=== PATIENT | female | born 1960 | race Caucasian/White ===

== ENCOUNTER 2024-02-28 22:13 | Observation (INO) | payer OTHER, SELFPAY ==
[2024-02-28 18:21] VITALS: BP 148/99
[2024-02-28 18:47] LABS: % Basophils 0.5 % (0-2); % Eosinophils 1.2 % (0-6); % Immature Granulocytes 0.2 % (0-0.5); % Lymphocytes 32.2 % (20.5-51.1); % Monocytes 7.6 % (1.7-9.3); % Neutrophils 58.3 % (42.2-75.2); Absolute Basophils 0.1 10^3/uL (0-0.2); Absolute Eosinophils 0.1 10^3/uL (0-0.7); Absolute Lymphocytes 3.2 10^3/uL (1.2-3.4); Absolute Monocytes 0.8 10^3/uL (0.1-0.6); Absolute Neutrophils 5.8 10^3/uL (1.4-6.5); Hematocrit 36.9 % (37.0-47.0); Hemoglobin 12.9 g/dL (12.0-16.0); Mean Corpuscular Hgb 31.9 pg (27.0-31.0); Mean Corpuscular Volume 91.1 fL (81.0-99.0); Mean Platelet Volume 9.8 fL (7.4-10.4); Nucleated Red Blood Cells % 0 %; Platelet Count 205 10^3/uL (130-400); Red Blood Cell Count 4.05 10^6/uL (4.20-5.40); Red Cell Dist. Width 12.3 % (11.5-14.5); White Blood Cell Count 9.9 10^3/uL (4.8-10.8)
[2024-02-28 19:00] LABS: ALT (SGPT) 26 U/L (0-35); AST (SGOT) 26 U/L (14-36); Albumin 4.5 g/dl (3.5-5.0); Alkaline Phosphatase 80 U/L (38-126); Blood Urea Nitrogen 16 mg/dl (7-17); Carbon Dioxide 31 mmol/L (22-30); Chloride 103 mmol/L (98-107); Glucose 115 mg/dl (70-99); Potassium 3.4 mmol/L (3.5-5.1); Sodium 143 mmol/L (135-145); Total Bilirubin 0.9 mg/dl (0.2-1.3); Total Protein 6.9 g/dl (6.3-8.2); eGFR > 60.00
[2024-02-28 19:38] VITALS: BP 144/94
[2024-02-28 19:45] VITALS: BMI 36.6
--- NOTE | 2024-02-28 19:57 | ED.CVA ---
History of Present Illness
General
Chief Complaint: CVA/TIA Symptoms
Source: patient and family
Exam Limitations: none
Time Seen by Provider: 02/28/24 19:34
Nursing documentation reviewed up to this point in time: agreed with
Onset of Stroke Symptoms
Onset of symptoms known: Yes
Date of onset of symptoms: 02/28/24
History of Present Illness
History of Present Illness:
63-year-old female with a past medical history of hypertension, hyperlipidemia, obesity, MIA on CPAP, prior stroke who presents to the emergency department with her family for evaluation of extremity tingling/numbness, generalized weakness and left
facial droop/dysarthria. Patient reports that she woke up this morning with numbness and tingling in the right arm. Since then she says numbness and tingling has progressed to all extremities but it is worse on the right. She also reports
weakness on the right side. Today in the afternoon she started to develop left facial droop that family noticed as well as some dysarthria. The symptoms have improved but not resolved. Brought to the emergency room for evaluation. Denies any
change in her vision. She does have history of prior stroke and she says that she received tPA and was transferred to [place] about 12 years ago for this stroke and has no residual deficits. Presenting symptoms at that time were mainly
dysarthria according to the patient and her . She continues to take aspirin but denies taking any other blood thinners. She denies any known cardiac history including specifically denying history of A-fib.
Past History
Past History
ED Past Medical History: HTN, Hypercholesterolemia and Psychiatric (a/d)
ED Past Surgical History: , Orthopedic and Tonsilectomy
Social History
Tobacco: Non-smoker
Alcohol: Occasional
Personal:
Living: with family
Family History
Family History: Negative Diabetes, Hypertension, Early CAD, Asthma or Cancer
Review of Systems
Review of Systems
All Other Systems: ROS reviewed and negative except as documented in HPI and ROS
Constitutional: Denies fever
Respiratory: Denies trouble breathing
Cardiac: Denies chest pain or palpitations
ABD/GI: Denies abdominal pain, nausea or vomiting
: Denies flank pain
Musculoskeletal: Denies neck pain or back pain
Neurological: Reports dizzy, weakness and numbness; Denies headache
Phy Exam
Physical Exam
Physical Exam:
General: Awake, alert, oriented x3; no acute distress
Head: Normocephalic, atraumatic
Eyes: Conjunctiva normal, EOMI, pupils equal round and reactive to light
Throat: Airway intact, handling secretions
Neck: Trachea midline, supple without meningismus
Lungs: Clear to auscultation bilaterally, no wheezing, rales, rhonchi
Heart: Regular rate and rhythm, no murmurs, gallops, or rubs
Neuro: Very slight droop left corner of the mouth, cranial nerves otherwise intact 2 through 12, no appreciable dysarthria or aphasia, no limb ataxia, motor and sensory exam significant for pronator drift in the right upper and lower extremity and
subjective sensory deficit on the right side
Skin: no rash
Extremities: No edema in extremities, equal pulses in all extremities
Scores
NIH Stroke Score
Level of Consciousness: 0 - Alert
LOC Questions: 0-Answers both correctly
LOC Commands: 0-Performs both correctly
Best Horizontal Gaze: 0-Normal
Visual [place]il[place]: 0=Normal, no visual loss
Facial Palsy: 1=Minor paralysis
Motor - Right Arm: 1=Drift < 10 seconds
Motor - Left Arm: 0=No drift 10 seconds
Motor - Right Le-Drift < 5 seconds
Motor - Left Le-No drift 5 seconds
Limb Ataxia: 0-Absent
Sensation: 1-Mild loss
Best Language: 0-No aphasia
Dysarthria: 0-Normal
Extinction and Inattention: 0-No abnormality
Total Score:: 4
Thrombolytic Contraindication
Inclusion and Exclusion criteria reviewed: Yes
Reasons for NON-Tx with Thrombolytics ABSOLUTE Exclusions: Greater than 4.5 hrs from onset of sxs
Heart Failure Risk
Heart Failure Risk Score: Not Applicable
Heart Score for Chest Pain Patients
STEMI patient?: Not applicable
Withdrawal Assessment of Alcohol
Withdrawal Assessment Completed?: Not applicable
Course
Orders/Labs/Results
Orders:
Orders
02/28/24 18:26
Electrocardiogram (*1) Urgent
Reason for Study: TIA/Stroke
CT Head W/o Iv Contrast Urgent
Comment: symptoms started 24 hours ago
Reason For Exam: bilateral arm/face/lip numbness, loss of balance
EKG- Treatment ONCE
02/28/24 18:38
Complete Blood Count/With Diff Urgent
Comprehensive Metabolic Panel Urgent
02/28/24 19:50
Aspirin 325 mg PO NOW STA
Clopidogrel Bisulfate [Plavix] 300 mg PO NOW STA
02/28/24 19:52
CT HEAD/NECK ANG STROKE ALERT Urgent
Comment:
Reason For Exam: right weakness, left facial droop, dysarthria
Abnormal Lab Results
02/28/24
18:38
RBC 4.05 L 10^6/uL
(4.20-5.40)
Hct 36.9 L %
(37.0-47.0)
MCH 31.9 H pg
(27.0-31.0)
Absolute Monos (auto) 0.8 H 10^3/uL
(0.1-0.6)
Potassium 3.4 L mmol/L
(3.5-5.1)
Carbon Dioxide 31 H mmol/L
(22-30)
Glucose 115 H mg/dl
(70-99)
02/28/24 18:38
02/28/24 18:38
Vital Signs
Initial and Last Documented VS:
Initial Vital Signs
Temp Pulse Resp BP Pulse Ox
36.7 C 81 18 148/99 99
02/28/24 18:21 02/28/24 18:21 02/28/24 18:21 02/28/24 18:21 02/28/24 18:21
Last Documented Vital Signs
Temp Pulse Resp BP Pulse Ox
36.7 C 81 18 148/99 96
02/28/24 18:21 02/28/24 18:21 02/28/24 18:21 02/28/24 18:21 02/28/24 19:45
MDM/Problems Addressed
Differential Diagnosis Includes:
Stroke, seizure, brain bleed, brain mass
MDM/Problems Addressed:
63-year-old female presents to the emergency room for evaluation of extremity paresthesias worse on the right, right-sided weakness, left facial droop and dysarthria�symptoms started this morning and progressed throughout the day; facial droop and
dysarthria have improved but not resolved, extremity symptoms unchanged. Hypertensive otherwise normal vitals. Physical exam as above. No stroke alert as patient is outside TNK window but she was taken for expeditious CT head which was negative
for any acute pathology. Labs sent off including a CBC and a CMP which showed no clinically significant abnormalities. Concern for minor ischemic stroke. Discussed case with neurology�again, outside TNK window but recommended sending for CTA head
and neck. Treat with aspirin and Plavix. If CTA head and neck negative for significant large vessel occlusion or dissection recommended admission for continued workup of acute stroke.
Chronic conditions affecting care:
Hypertension, hyperlipidemia, obesity
Acute Exacerbation and/or Progression of Chronic Illness:
Acutely hypertensive�permissive in the setting of stroke
Acute Exacerbation and/or Progression of Chronic Illness: HTN
*Radiology
Radiology exam reviewed: radiology read reviewed
*Pulse Oximetry
Patient hypoxic: no
*EKG
Interpreted by ED Provider?: Yes
Heart Rate: 78
Rate: normal
Rhythm: sinus
[place]: normal axis
Interval: long QT
QRS Pattern: normal QRS
Ischemia: non-specific ST changes
*Critical Care Note
Total Time (30-74mins, 75-104mins- exclusive of procedures): Not Applicable
Data Reviewed
Review of Other/Old Records Reveals: Labs and Records
Source: patient, records and family
Patient Management
Discussion with other providers: Hospitalist (Discussed with hospitalist) and Distributor Cleaner (Discussed with neurology)
Escalation/DeEscalation of care consider admission/obs:
Admission indicated
ED Attending Note
-
Portions of this chart may have been created with voice recognition software.� Occasional wrong word or��sound alike� substitutions may have occurred due to the inherent limitations of voice recognition software.
Discharge Plan
Departure
Prescriptions:
No Action
buspirone 5 MG tablet
7.5 mg PO BID
venlafaxine [Effexor XR] 150 MG capsule,extended release 24hr
150 mg PO HS
lisinopril-hydrochlorothiazide 1 EACH tablet
1 tab PO HS
albuterol sulfate 1 PUFF HFA aerosol inhaler
2 puff inhalation R QID
eszopiclone [Lunesta] 3 MG tablet
3 mg PO HSPRN PRN (Reason: sleep)
Patient Comments:
12/18/20-patient shredder picker on 11/08/20 #30
zinc [Zinc Chelate] 100 MG tablet
100 mg PO DAILY
magnesium oxide 500 MG tablet
500 mg PO DAILY
cyclosporine [Restasis] 10 DROPS dropperette
1 drp BOTH EYES BID
cholecalciferol (vitamin D3) 2,000 UNITS tablet
2,000 units PO DAILY
simvastatin 20 MG tablet
40 mg PO QPM
potassium chloride 20 MEQ tablet extended release
20 meq PO BID
acetaminophen 325 MG tablet
650 mg PO Q4HPRN PRN (Reason: fever >/= 100.4F, GUAMAN,mild pain) 0RF
valacyclovir 500 MG tablet
1,000 mg PO BID Qty: 6 0RF
dexamethasone 2 MG tablet
2 mg PO DAILY Qty: 11 0RF
codeine-guaifenesin [Guaiatussin AC] 10 ML liquid
10 ml PO Q4HPRN PRN (Reason: cough) 0RF
gabapentin 100 MG capsule
200 mg PO HS Qty: 30 0RF
oseltamivir [Tamiflu] 75 mg capsule
75 mg PO BID 5 Days Qty: 10 0RF
Interventions
Interventions:
*Risk Screen - Suicide Last Done: 02/28/24 18:21
*General Assessment Last Done: 02/28/24 18:21
*Neglect/Abuse Screening Last Done: 02/28/24 18:21
*ED COVID-19 Vaccine History Last Done: 02/28/24 19:45
ED- Pulmonary Assessment Last Done: 02/28/24 19:45
ED- Neurological Assessment Last Done: 02/28/24 19:45
ED- Cardiac Assessment Last Done: 02/28/24 19:45
ED Swallowing Screen Last Done: 02/28/24 19:58
Discharge Date and Time
Print Language: UPPER SORBIAN
[2024-02-28 20:00] VITALS: BP 135/86
[2024-02-28] MEDS: PLAVIX 300 MG PO (20:00)
[2024-02-28] MEDS: ASPIRIN 325 MG PO (20:00)
[2024-02-28 21:00] VITALS: BP 137/85
--- NOTE | 2024-02-28 21:10 | HPS.HSE ---
Addendum entered and electronically signed by Rivas Fowler DO 02/28/24 23:06:
Patient seen and examined independently. Patient is a 63y F with PMH significant for hypertension, anxiety / PTSD and prior CVA who presents to ED complaining of numbness / tingling in the RUE. Patient states that symptoms started this AM and
have been predominately on the R side. She did have some similar paresthesias in the L hand later this afternoon. Patient and family also report intermittent R facial droop and some equally intermittent word-finding difficulties.
Patient notes no focal weakness, gait dysfunction, etc.
Patient does complain of headache - but reports that she has had daily headaches for the past 2-3 years.
Ass:
R > L sided Paresthesias
Expressive Aphasia / R Facial Droop - Intermittent
ASCVD / Prior CVA
Prolonged QTc
Mild Hypokalemia
Chronic Headaches
Benign Hypertension
Anxiety / Depression / PTSD
MIA
Insomnia
Plan:
Observe overnight for further evaluation and treatment.
Monitor for any new / worsening neurologic symptoms.
MRI in the AM.
Neurology evaluation.
DAPT for now.
Continue BP control, statin, etc.
Addendum entered and electronically signed by NELLI Villavicencio 02/28/24 22:32:
CVA rule out
Aspirin 81 mg daily, Plavix 300 mg given in ER then Plavix 75 mg daily per neurology
Original Note:
Family Physician
-
Family Physician: INTERVIEWE UNKNOWN - PT NOT
Chief Complaint
-
Bilateral arm weakness, tingling numbness, right facial droop, expressive aphasia, ataxia
History of Present Illness
63-year-old female complaining of generalized weakness, right facial droop with dysarthria and right arm tingling and numbness. She reports the tingling numbness in the right arm started this morning then has progressed to her left arm. She states
she drove approximately 2 miles to her daughter's house and was telling her about the symptoms. Her daughter states she thought she had a weakness in the left side of her face but now states it was her right side . Her daughter also states she had
some expressive aphasia and when walking she was leaning more to the left side due to increased weakness and numbness on the right side. The patient currently complains of bilateral arm numbness and tingling along with tightness in her fingers and
joints. She has prominent Aydee's nodes on her left index and pinky finger along with right pinky finger. She does not appear to have any swelling to her joints, hands, elbows, shoulders, ankles and feet. She denies a history of daily
headaches for which she only saw a physician 1 time who gave her prescription for Nurtec which helped but she had run out. She states she takes daily Excedrin migraine which will help take them away. She reports to me she has not seen a physician
for them as she is overwhelmed with just being sick and feels it is just not worth it to keep going to doctors. She drinks 16 ounces of Chardonnay twice a week. She denies current fever, chills, chest pain, palpitations, shortness breath, cough,
abdominal pain, nausea, vomiting, diarrhea, urinary symptoms, recent illness. She has past medical history of prior stroke in which she received tPA and was transferred to [place] approximately 12 years ago with no residual deficits. She is
currently on aspirin. She has past medical history of hypertension, hyperlipidemia, anxiety/depression, influenza A 03/03/2023, COVID 19 infection 12/17/2020 treated with monoclonal antibody infusion and Decadron . Was unvaccinated at that time,
pulmonary fibrosis from COVID-19 infection, right eye retinal tear June 2020, right eye glaucoma.
Medical History
Past Medical History
Past Medical History: Reports Other
Additional Past Medical History:
prior stroke in which she received tPA and was transferred to [place] approximately 12 years ago with no residual deficits
hypertension
hyperlipidemia
anxiety/depression
PTSD
influenza A 03/03/2023
COVID 19 infection 12/17/2020 treated with monoclonal antibody infusion and Decadron . Was unvaccinated at that time
Reported pulmonary fibrosis from COVID
Sleep apnea, CPAP
Right eye glaucoma
Ovarian cysts
Past Surgical History: Reports Other
Additional Past Surgical History:
2003 Boxer fracture right hand
Bilateral cataract extraction 1998
section
Tonsillectomy
Retinal detachment repair June 2020
Social History
Tobacco: Non-smoker
Alcohol: Occasional (16 ounces Chardonnay wine twice a week)
Drug: None
Personal:
Living: With Family
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
Family History
Family History: Not pertinent
Allergies / Home Medications
Allergies reflects when Allergies were last updated in [facility].
Home Medications with original date entered in [facility]
Allergy/Medication List:
Allergies
Allergy/AdvReac Type Severity Reaction Status Date / Time
Calcium Channel Blocking Allergy Unknown Verified 12/18/20 12:56
[facility]
Home Medications
buspirone 5 mg tablet 10 mg PO BID Mental Health/Anxiety 12/17/20
cholecalciferol (vitamin D3) 50 mcg (2,000 unit) tablet 2,000 units PO DAILY Supplement 12/17/20
eszopiclone 3 mg tablet (Lunesta) 3 mg PO HSPRN PRN sleep 12/17/20
lisinopril 20 mg-hydrochlorothiazide 25 mg tablet 1 tab PO HS Blood pressure 12/17/20
magnesium oxide 500 mg PO DAILY Electrolyte Repletion 12/17/20
venlafaxine 150 mg capsule,extended release 24 hr (Effexor XR) 150 mg PO HS Mental Health/Anxiety 12/17/20
simvastatin 20 mg tablet 40 mg PO QPM High cholesterol 12/18/20
Aspir-81 81 mg PO HS 02/28/24
Excedrin Migraine 2 tab PO DAILY PRN headache 02/28/24
Vitamin B-6 100 mg PO DAILY 02/28/24
Vitamin C 1,000 mg PO DAILY 02/28/24
Vitamin D3 1,000 l PO DAILY 02/28/24
dorzolamide-timolol 1 drp ophthalmic (eye) BID 02/28/24
eszopiclone 3 mg tablet (Lunesta) 3 mg PO HS 02/28/24
iron 65 mg PO DAILY 02/28/24
lisinopril 10 mg PO DAILY 02/28/24
metoprolol succinate 25 mg PO HS 02/28/24
selenium 200 mcg PO DAILY 02/28/24
zinc 50 mg PO DAILY 02/28/24
Review of Systems
-
History Source: Patient and Family (Daughter and at bedside)
A 12 point ROS was completed and negative except as noted: Yes
Constitutional: Denies Fever, Fatigue or Chills
EENT: Reports Other (Negative neck pain); Denies Sore Throat, Mouth Swelling or Runny Nose
Respiratory: Denies Cough or Trouble Breathing
Cardiac: Denies Chest Pain, Diaphoresis, Palpitations or Syncope
Abdomen/GI: Denies Abdominal Pain, Nausea, Vomiting, Diarrhea, Constipated, Bloody Stools or Black Stools
: Denies Dysuria, Frequency, Flank Pain, Incontinence, Difficulty Voiding, Urgency or Dark Urine
Musculoskeletal: Reports Joint Pain (Bilateral hands/fingers,Osteoarthritis with prominent Aydee's nodes left index, pinky finger, right pinky finger); Denies Joint Swelling or Edema
Skin: Denies Itching or Rash
Neurological: Reports Headache (Chronic daily), Weakness (Reported right side of body), Numbness (Reported right side of body) and Other (Reported right facial droop); Denies Dizzy
Endocrine: Reports No Symptoms
Hematologic/Lymphatic: Reports No Symptoms
Psych: Reports Calm
Physical Exam
Vital Signs
Vital Signs
Temp Pulse Resp BP Pulse Ox
98.1 F 85 16 135/86 94
02/28/24 18:21 02/28/24 20:30 02/28/24 20:30 02/28/24 20:00 02/28/24 20:30
Physical Exam
General: Comfortable, Conversant and Obese; No Pain, Fever or Chills
HEENT: NormoCephalic, Anicteric, Moist mucous membranes, PERRLA (EOMs intact), [place] Conjunctivae, No Ptosis, Neck Nontender and Other (Speech clear, intermittent right facial droop, not present when patient is speaking only when at rest); No
Pharyngeal Erythema
Respiratory: Clear; No Wheezes, Rales or Rhonchi
Cardiac: S1/S2 and Regular Rhythm; No Murmur, Rub, Gallop or Peripheral Edema
Breast: Deferred by me
GI: Soft, Non Tender, Non Distended, Normal Bowel Sounds and No Hepatosplenomegaly
Rectal: Deferred by Provider
Genito-urinary: Deferred by me
Musculoskeletal: No Clubbing, No Cyanosis, No Edema and Other (Osteoarthritis with prominent Aydee's nodes left index, pinky finger, right pinky finger)
Skin: Warm and Dry; No Rash or Jaundice
Neuro: AO x 3, No Motor Deficits, Cranial Nerves Intact, No Sensory Deficits, Facial Droop (Intermittent right facial droop , not present when talking) and Other; No Slurred Speech, Tremors or Sedated
Psych: Calm
Laboratory Results
-
02/28/24 18:38
02/28/24 18:38
Laboratory Results
Total Bilirubin 0.9 mg/dl (0.2-1.3) 02/28/24 18:38
AST 26 U/L (14-36) 02/28/24 18:38
ALT 26 U/L (0-35) 02/28/24 18:38
Alkaline Phosphatase 80 U/L (38-126) 02/28/24 18:38
Data Reviewed
-
CT Scan: Report Reviewed by me
Lab Data: Labs Reviewed by me
Impression/Plan
-
Impression/plan:
Admit to telemetry
#Right sided weakness/arm drift, left facial droop
#Onset Right side weakness this a.m then later left facial droop. out of TNK window
#Hx CVA 12 years ago treated with tPA with no residual side effects
-Check lipid profile, HgbA1c
-Continue aspirin 81 mg daily, Zocor 40 mg every afternoon
-Consult neurology
-MRI brain
-Check B12 level
-PT/OT/case management consult
CTA head and neck:
1. Focal nodular plaque involving the proximal left cervical ICA with estimated luminal diameter reduction of less than 50%
2. no other significant plaque stenosis or occlusion or dissection of the carotid or vertebral arteries
3. no [place] of [place] region aneurysm or stenosis no cerebral artery significant plaque stenosis thrombus or occlusion
#Prolonged QTc 507 MS
-Hold prolonging QTc agents
-Follow on telemetry
EKG: NSR 83 bpm, QTc 507 MS otherwise normal
# Acute hypokalemia
K3.4
-Will give 40 KCl p.o., follow BMP
#Daily headaches
-Patient reports takes 2 Excedrin Migraine typically daily did have prior Nurtec that helps
-Had lengthy discussion for patient to follow-up with either PCP or neurologist to discuss prophylactic daily migraine medications
-Continue vitamin B6 100 mg daily, selenium 200 mg daily, mag oxide 500 mg daily
#HTN�benign
BP 135/86
-Continue lisinopril/HCTZ 20-25 mg p.m., lisinopril 10 mg a.m.
-Patient takes aspirin 81 mg daily
#HLD
-Check lipid profile, continue simvastatin 40 mg every afternoon
#Anxiety/depression
#PTSD
-Continue Effexor XR 150 mg at bedtime, BuSpar 10mg twice daily
#Osteoarthritis with prominent Aydee's nodes left index, pinky finger, right pinky finger
-Continue vitamin D3 1000 units daily, vitamin C 1000 mg daily
#COVID 19 infection 12/17/2020 treated with monoclonal antibody infusion and Decadron
#Pulmonary fibrosis from above COVID infection
# Sleep apnea
Uses fluctuating nasal cushion 5-20 does not have with her today
#Insomnia
-Continue Lunesta 3 mg at bedtime
Other PMH:
#Hx influenza A 03/03/2023
Right eye retinal tear June 2020
Right eye glaucoma-continue dorzolamide/timolol 1 drop right eye twice daily
DVT prophylaxis
SCDs
Full code
[2024-02-28 22:33] VITALS: BP 136/93
[2024-02-28 23:00] VITALS: BP 141/87
[2024-02-29] VITALS (8 sets, daily range): BP systolic 125–144; BP diastolic 83–93; PULSE 84–88; O2SAT 96; BMI 36.3
[2024-02-29] MEDS: KCL 40 MEQ PO (00:15)
[2024-02-29] MEDS: EFFEXOR XR 150 MG PO (00:15)
[2024-02-29] MEDS: TRUSOPT 2% OPHTHALMIC SOLUTION 1 DROP OPHTH ×2 (00:42→08:36)
[2024-02-29] MEDS: TIMOPTIC 0.5% OPHTHALMIC SOLUTION 1 DROP OPHTH ×2 (00:42→08:36)
--- NOTE | 2024-02-29 00:50 | PTCARENOTE ---
Pt arrived from ED via stretcher. OOb to bed x1 minimal assist, steady gait. Pt with delayed speech, states 'I do feel like I am talking slower and I have to think about my words.' Also c/o R hand numbness and tinging and R leg decreased sensation.
Denies sob, pain or dizziness. oriented to room. call patton within reach.
[2024-02-29 01:32] LABS: Vitamin B12 247 pg/ml (239-931)
[2024-02-29] MEDS: TYLENOL 650 MG PO (05:44)
[2024-02-29] MEDS: BUSPAR 10 MG PO (06:10)
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
[2024-02-29] MEDS: VITAMIN C 1000 MG PO (08:34)
[2024-02-29] MEDS: VITAMIN B-6 100 MG PO (08:34)
[2024-02-29] MEDS: PLAVIX 75 MG PO (08:34)
[2024-02-29] MEDS: VITAMIN D3 (cholecalciferol) 25 MCG PO (08:35)
[2024-02-29] MEDS: FEOSOL 325 MG PO (08:35)
[2024-02-29] MEDS: ZINC 50 MG PO (08:35)
[2024-02-29] MEDS: MAGNESIUM OXIDE 500 MG PO (08:35)
[2024-02-29] MEDS: ZESTRIL 10 MG PO (08:36)
[2024-02-29 08:39] LABS: % Basophils 0.7 % (0-2); % Eosinophils 1.6 % (0-6); % Immature Granulocytes 0.3 % (0-0.5); % Lymphocytes 38.9 % (20.5-51.1); % Monocytes 10.2 % (1.7-9.3); % Neutrophils 48.3 % (42.2-75.2); Absolute Basophils 0.1 10^3/uL (0-0.2); Absolute Eosinophils 0.1 10^3/uL (0-0.7); Absolute Lymphocytes 2.6 10^3/uL (1.2-3.4); Absolute Monocytes 0.7 10^3/uL (0.1-0.6); Absolute Neutrophils 3.3 10^3/uL (1.4-6.5); Hematocrit 37.6 % (37.0-47.0); Hemoglobin 12.6 g/dL (12.0-16.0); Mean Corp Hgb Conc. 33.5 g/dL (33.0-37.0); Mean Corpuscular Hgb 31.7 pg (27.0-31.0); Mean Corpuscular Volume 94.5 fL (81.0-99.0); Mean Platelet Volume 9.8 fL (7.4-10.4); Nucleated Red Blood Cells % 0 %; Platelet Count 195 10^3/uL (130-400); Red Blood Cell Count 3.98 10^6/uL (4.20-5.40); Red Cell Dist. Width 12.6 % (11.5-14.5); White Blood Cell Count 6.8 10^3/uL (4.8-10.8)
[2024-02-29 09:02] LABS: ALT (SGPT) 24 U/L (0-35); AST (SGOT) 26 U/L (14-36); Albumin 4.1 g/dl (3.5-5.0); Alkaline Phosphatase 68 U/L (38-126); Blood Urea Nitrogen 15 mg/dl (7-17); Calcium 8.7 mg/dl (8.4-10.2); Carbon Dioxide 24 mmol/L (22-30); Chloride 107 mmol/L (98-107); Estimated Creatinine Clearance 112 ml/min; Glucose 90 mg/dl (70-99); HDL Cholesterol 48 mg/dl; LDL Cholesterol, Calculated 69 mg/dl; Magnesium 2.2 mg/dl (1.6-2.3); Sodium 141 mmol/L (135-145); Total Bilirubin 1.4 mg/dl (0.2-1.3); Total Cholesterol 157 mg/dl (50-199); Total Protein 6.4 g/dl (6.3-8.2); Triglyceride 201 mg/dl (10-149); Very Low Density Lipoprotein 40 mg/dl (0-30); eGFR > 60.00
--- NOTE | 2024-02-29 12:20 | CM ---
Met with pt at bedside
Pt reports she lives with her , daughter, son-in-law and 3 grandchildren in a 2 story home; 1 step to enter, 13 steps to 2nd fl
Independent, employed FT, drives
DME - CPAP with [employer]
SNF - denies past hx
HH - [facility] in past
Has ride home at discharge
PCP - Soto Cleveland
Pharm - [facility]
Discussed OBS status - given letter
Plan - anticipate home no needs when medically stable
--- NOTE | 2024-02-29 12:36 | PTOTSP ---
pt currently requires supervision to no assistance to complete simple ADLs, functional transfers, ambulation. no symptoms noted while completing functional tasks; pt reports they have resolved. no acute OT needs identified, will sign off.
--- NOTE | 2024-02-29 14:07 | W.DCSUMMARY ---
Discharge Summary
Discharge Data
Date of Admission: 02/28/24
Date of Discharge: 02/29/24
-
Pending Results: No
Hospital Course
Discharging Physician : Dr. Reyna Cruz
Disposition : Home with outpatient physical therapy
Primary care physician : Dr. Soto Cleveland
Principal Discharge diagnosis : TIA
Hospital Course :
Ms. Anamaria Ramos is a 63 yo woman with hx essential HTN, anxiety/PTSD, prior CVA presents to the ER with numbness/tingling RUE and report of intermittent right facial droop with word-finding difficulties.
Head CT without acute abnormality. CTA with proximal left cervical ICA stenosis < 50%; no other significant stenosis. Patient was started on plavix with [employer] aspirin and admitted to medicine with Neurology consulting for further work-up of TIA
versus stroke.
Symptoms improved following morning with only minor RUE numbness/tingling. TTE with EF 55-60%; bubble study WNL. MRI did not show acute infarct. She is treated for TIA with 21 days asa/plavix then transition back to aspirin per Neurology
recommendations. She will be set up for 2 week Holter Monitor as outpatient.
EEG performed prior to discharge was normal.
Time spent on discharge was 31 minutes.
Important imaging findings :
Head CT 02/29/24
IMPRESSION:
No evidence of acute intracranial abnormality.
CTA
IMPRESSION:
Focal nodular calcified plaque involving the proximal left cervical ICA, with estimated luminal diameter reduction of less than 50%.
No other significant calcified plaque, stenosis, occlusion, or dissection of the cervical carotid or vertebral arteries.
No ione of Tong region aneurysm or stenosis.
No cerebral artery significant plaque, stenosis, thrombus, or occlusion.
Degree of stenosis based on NASCET criteria.
Brain MRI 02/29/24
IMPRESSION:
There are no focal or acute intracranial abnormalities.
Specifically, there is no evidence of acute infarct
There is mild cortical and cerebellar atrophy with mild nonspecific white matter changes as described above.
TTE
CONCLUSIONS
Normal left ventricular size and systolic function without regional wall motion
abnormality. LVEF 55-60%.
Mild left ventricular hypertrophy.
Mildly enlarged right ventricle with normal systolic function.
No significant valvular disease.
Bubble study with no evidence of shunt.
Jose Luis
Procedure findings :
Discharge Plan
-
Patient Disposition: Home (Routine Discharge)
Discharge Diagnosis/Procedures: transient ischemic attack
Diet: Low Cholesterol
Activity: As tolerated
Driving Restrictions: As prior to admission
Bathing Restrictions: None
Others Tests: playground monitor - you will receive a phone call to set up heart monitor to be placed tomorrow. This monitor is to confirm you do not have an arrhythmia that can lead to TIA or stroke (atrial fibrillation).
Other Services: PT
Referrals:
Diya Eubanks CRNP [Specified Professional Personl] - in six weeks
Soto Cleveland MD [Family Provider] - in less than 1 week
Elias Pugh MD [Active] - (Dr. Pugh's office will call you tomorrow to arrange for a 14-day heart monitor to be placed.)
Additional Discharge Medication Instructions: You have 19 more days of Plavix to take with Aspirin. After 19 days continue aspirin 81mg daily.
Take Protonix while on aspirin and Plavix.
Prescriptions:
New
clopidogrel 75 mg Tablet
75 mg PO DAILY Qty: 19 0RF
pantoprazole [Protonix] 40 mg tablet,delayed release (DR/EC)
40 mg PO DAILY Qty: 20 0RF
Continued
buspirone 5 MG tablet
10 mg PO BID
venlafaxine [Effexor XR] 150 MG capsule,extended release 24hr
150 mg PO HS
lisinopril-hydrochlorothiazide 1 EACH tablet
1 tab PO DAILY
Rx Instructions:
20/25mg
eszopiclone [Lunesta] 3 MG tablet
3 mg PO HSPRN PRN (Reason: sleep)
Patient Comments:
12/18/20-patient case picker on 11/08/20 #30
magnesium oxide 500 MG tablet
500 mg PO DAILY
cholecalciferol (vitamin D3) 2,000 UNITS tablet
2,000 units PO DAILY
simvastatin 20 MG tablet
40 mg PO QPM
Aspir-81
81 mg PO HS
eszopiclone [Lunesta] 3 mg Tablet
3 mg PO HS
Vitamin B-6
100 mg PO DAILY
Vitamin C
1,000 mg PO DAILY
Vitamin D3
1,000 l PO DAILY
dorzolamide-timolol
1 drp ophthalmic (eye) BID
Rx Instructions:
2%/0.5% right eye
iron
65 mg PO DAILY
lisinopril
20 mg PO DAILY
metoprolol succinate
25 mg PO HS
zinc
50 mg PO DAILY
rosuvastatin [Crestor] 20 mg Tablet
20 mg PO DAILY
Discontinued
Excedrin Migraine
2 tab PO DAILY PRN (Reason: headache)
Discharge Orders:
Discharge Patient (As Directed); Ordered 02/29/24
Ordered By: Reyna Cruz
Discharge Date and Time
Print Language: CHILEAN
--- NOTE | 2024-02-29 15:52 | W.DS.TRANS ---
DC Summary - Audiovisual Librarian
-
Discharge Instructions:
Discharge Diagnosis/Procedures transient ischemic attack
Diet Low Cholesterol
Activity As tolerated
Driving Restrictions As prior to admission
Bathing Restrictions None
Other Services PT
Instructions:
Stand-Alone Forms:
Changes to Home Medications: Yes
Discharge Medications:
DC Medications w/original date entered in [facility]
buspirone 5 mg tablet 10 mg PO BID Mental Health/Anxiety 12/17/20
cholecalciferol (vitamin D3) 50 mcg (2,000 unit) tablet 2,000 units PO DAILY Supplement 12/17/20
eszopiclone 3 mg tablet (Lunesta) 3 mg PO HSPRN PRN sleep 12/17/20
lisinopril 20 mg-hydrochlorothiazide 25 mg tablet 1 tab PO DAILY Blood pressure 12/17/20
magnesium oxide 500 mg PO DAILY Electrolyte Repletion 12/17/20
venlafaxine 150 mg capsule,extended release 24 hr (Effexor XR) 150 mg PO HS Mental Health/Anxiety 12/17/20
simvastatin 20 mg tablet 40 mg PO QPM High cholesterol 12/18/20
Aspir-81 81 mg PO HS 02/28/24
Vitamin B-6 100 mg PO DAILY 02/28/24
Vitamin C 1,000 mg PO DAILY 02/28/24
Vitamin D3 1,000 l PO DAILY 02/28/24
dorzolamide-timolol 1 drp ophthalmic (eye) BID 02/28/24
eszopiclone 3 mg tablet (Lunesta) 3 mg PO HS 02/28/24
iron 65 mg PO DAILY 02/28/24
lisinopril 20 mg PO DAILY 02/28/24
metoprolol succinate 25 mg PO HS 02/28/24
zinc 50 mg PO DAILY 02/28/24
clopidogrel 75 mg tablet 75 mg PO DAILY #19 tabs 02/29/24
pantoprazole 40 mg tablet,delayed release (Protonix) 40 mg PO DAILY #20 tabs 02/29/24
rosuvastatin 20 mg tablet (Crestor) 20 mg PO DAILY 02/29/24
Home Medication Changes
addition of Plavix and Protonix
Pending Results: No
[2024-02-29] MEDS: AFLURIA (36 mos+) 2024-2025 FORMULA 0.5 ML IM (17:33)
--- NOTE | 2024-02-29 18:24 | EEGC.RPT ---
Continuous EEG Report
Report
TECHNICAL REMARKS: This is a technically satisfactory eighteen channel record employing 21 disc electrodes applied according to a measured international 10-20 electrode placement system. There were no significant technical difficulties. The study
was done on a [employer] System.
CLINICAL HISTORY: This is a 63-year-old woman with transient encephalopathy. This study was requested to look for epileptiform abnormalities
MEDICATION: No AED
STUDY DURATION: 29 min, 48 secs
REPORT: At the onset of the EEG, the patient is awake. The background activity consists of 10.5-11 Hz, persistent, posteriorly dominant, moderate amplitude, symmetric and rhythmic activity that is reactive to eye-opening. Anteriorly, it consists of
a mixture of low voltage indeterminate activity and 20-25 Hz, persistent, low amplitude, symmetric and rhythmic activity. Stepwise intermittent photic stimulation (1-31 Hz) does not induce any abnormalities. Hyperventilation was not performed.
Drowsiness is characterized by low amplitude mixed frequency activity, decreased eye blinking, and muscle artifact.
IMPRESSION: This is a normal awake and drowsy EEG. There is no evidence of focal slowing or epileptiform activity. A normal EEG does not rule out epilepsy. If the clinical picture warrants, a sleep-deprived awake and sleep record may be helpful.
== END 2024-02-29 17:55 | disposition home or self-care (01) ==
LOC: 2 SOUTH 22:13
PROVIDERS: Clinical Nurse Specialist Family Health; Student in an Organized Health Care Education/Training Program; ADMITTING PHYSICIAN Hospitalist; ATTENDING PHYSICIAN Student in an Organized Health Care Education/Training Program; CONSULT PHYSICIAN Psychiatry & Neurology Neurology; EMERGENCY PHYSICIAN Emergency Medicine; FAMILY PHYSICIAN Internal Medicine
DX: G45.9 Transient cerebral ischemic attack, unspecified (principal); R29.810 Facial weakness; I11.9 Hypertensive heart disease without heart failure; E66.9 Obesity, unspecified; G47.33 Obstructive sleep apnea (adult) (pediatric); R53.1 Weakness; R47.1 Dysarthria and anarthria; E78.00 Pure hypercholesterolemia, unspecified; R26.89 Other abnormalities of gait and mobility; R20.0 Anesthesia of skin; F43.10 Post-traumatic stress disorder, unspecified; F32.A Depression, unspecified; F41.9 Anxiety disorder, unspecified; R51.9 Headache, unspecified; G31.9 Degenerative disease of nervous system, unspecified; R20.2 Paresthesia of skin; R47.01 Aphasia; I25.10 Atherosclerotic heart disease of native coronary artery without angina pectoris; J84.10 Pulmonary fibrosis, unspecified; M50.322 Other cervical disc degeneration at C5-C6 level; M50.323 Other cervical disc degeneration at C6-C7 level; R94.31 Abnormal electrocardiogram [ECG] [EKG]; E87.6 Hypokalemia; G47.00 Insomnia, unspecified; M19.90 Unspecified osteoarthritis, unspecified site; Z86.16 Personal history of COVID-19; Z68.36 Body mass index [BMI] 36.0-36.9, adult; Z23 Encounter for immunization; Z86.73 Personal history of transient ischemic attack (TIA), and cerebral infarction without residual deficits
CPT/HCPCS: 70450; 70496; 70498; 70551; 80053; 80061; 82607; 83735; 85025; 90686; 93005; 93306; 95816; 97162; 97165; 99285; G0008; G0378; Q9967

== ENCOUNTER 2024-12-09 23:10 | Inpatient (IN) | payer BC, SELFPAY ==
[2024-12-09] VITALS (11 sets, daily range): BP systolic 80–123; BP diastolic 53–75; BMI 35.1
[2024-12-09 17:27] LABS: Hematocrit 38.7 % (37.0-47.0); Hemoglobin 13.6 g/dL (12.0-16.0); Mean Corp Hgb Conc. 35.1 g/dL (33.0-37.0); Mean Corpuscular Volume 90.4 fL (81.0-99.0); Nucleated Red Blood Cells % 0 %; Red Cell Dist. Width 12.5 % (11.5-14.5)
[2024-12-09 17:36] LABS: Urine Character Clear (Clear)
[2024-12-09 17:57] LABS: Urine Squamous Cell 16-20 /LPF (Few)
[2024-12-09 17:58] LABS: Urine Red Blood Cell 0-2 /HPF (0-2)
[2024-12-09 18:02] LABS: Platelet Count 214 10^3/uL (130-400)
--- NOTE | 2024-12-09 20:55 | ED.GENMED ---
History of Present Illness
General
Chief Complaint: Urinary Symptoms
Source: patient and spouse
Time Seen by Provider: 12/09/24 20:33
History of Present Illness
History of Present Illness:
This patient is a 64-year-old female who states that approximately 24 hours ago she noted 'pressure' in the pelvic area that is persistent, associated with fever and mild nausea. She describes the pressure as in the pelvic area but also radiating
to the perineal area and to her lower back bilaterally. She denies associated chest pain or new shortness of breath but she does note a new occasional cough productive of 'clear phlegm'. She denies dysuria, urgency, frequency, hematuria, vaginal
mare discharge. She thought she might be constipated so she took a laxative and did have a normal bowel movement without black stool or blood. She denies headache, neck pain, photophobia, trouble swallowing, or other complaints. Patient saw her
primary care doctor and was referred to the emergency department.
Past History
Past History
ED Past Medical History: CVA, HTN, Hypercholesterolemia and Psychiatric (a/d)
ED Past Surgical History: , Orthopedic and Tonsilectomy
Social History
Tobacco: Non-smoker
Alcohol: Occasional
Drug: None
Personal:
Living: with family
Family History
Family History: Negative Diabetes, Hypertension, Early CAD, Asthma or Cancer
Phy Exam
Physical Exam
Physical Exam:
GENERAL: Alert , in no apparent distress
EYE: pupils equal and reactive
NECK: Supple, no significant adenopathy.
ENT: o/p clr, mmm.
CARDIAC: Regular rate and rhythm .
LUNGS: Clear breath sounds bilaterally, no acute respiratory distress, no wheezes/rales/rhonchi
ABDOMEN: Soft, diffuse nonspecifc tenderness, no r/g, no cvat
NEUROLOGICAL: Alert and oriented, no focal neuro deficits
SKIN: Warm and dry, skin intact.
MUSCULOSKELETAL: No edema, well perfused.
PSYCH: Normal and appropriate interaction.
Sepsis
Sepsis Screening
Sepsis Assessment: Sepsis
Sepsis Screen
Sepsis Screen: Sepsis
Date: 12/09/24
Time: 22:18
Course
Orders/Labs/Results
Orders:
Orders
12/09/24 16:24
Complete Blood Count/With Diff Urgent
12/09/24 17:26
Urinalysis Reflex To Culture Urgent
Date Specimen was Collected: 12/09/24
Time Specimen was Collected: 16:12
Urine Microscopic Reflex Cult Urgent
Urine Culture Urgent
SARAH Source: U
Specimen Description:
Date Specimen was Collected: 12/09/24
Time Specimen was Collected: 16:12
12/09/24 20:51
Electrocardiogram (*1) Urgent
Reason for Study: Other
Other Reason for Exam: sepsis
CT Abd/pelvis W Iv Cont Urgent
Comment:
Reason For Exam: pelvic 'pressure' with fever
Cardiac Monitoring- Treatment ONCE
EKG- Treatment ONCE
0.9% Sodium Chloride 1000 ml [Nss] 1,600 ml IV NOW STA
CR Chest - 2 Views Urgent
Comment:
Reason For Exam: fever
12/09/24 21:08
Blood Culture Q30M
SARAH Source: Blood/Venous
Specimen Description:
Blood Culture Q30M
SARAH Source: Blood/Venous
Specimen Description:
12/09/24 21:13
COVID-19 Antigen Urgent
Source: Nasal Swab
Comprehensive Metabolic Panel Urgent
Lactic Acid Q4H
Comment: CANCEL 2nd LACTIC ACID IF 1st LACTIC ACID IS LESS THAN 2
Influenza A+B Rapid Molecular Urgent
SARAH Source: Nasal Swab
Specimen Description:
12/09/24 21:15
Acetaminophen [Tylenol] 1,000 mg PO NOW STA
12/10/24 01:00
Lactic Acid Q4H
Comment: CANCEL 2nd LACTIC ACID IF 1st LACTIC ACID IS LESS THAN 2
Abnormal Lab Results
12/09/24 12/09/24 12/09/24
16:24 17:26 21:13
WBC 13.5 H 10^3/uL
(4.8-10.8)
MCH 31.8 H pg
(27.0-31.0)
MPV 10.5 H fL
(7.4-10.4)
Absolute Neuts (auto) 10.1 H 10^3/uL
(1.4-6.5)
Absolute Monos (auto) 1.1 H 10^3/uL
(0.1-0.6)
Lymphocytes % 16.3 L %
(20.5-51.1)
Glucose 106 H mg/dl
(70-99)
Total Bilirubin 2.0 H mg/dl
(0.2-1.3)
Leukocyte Esterase Rfl 2+ A
(Negative)
Urine Bacteria (Reflex) Few A
(Negative)
12/09/24 16:24
12/09/24 21:13
Vital Signs
Initial and Last Documented VS:
Initial Vital Signs
Temp Pulse Resp BP Pulse Ox
99.7 F 120 18 110/75 96
12/09/24 16:07 12/09/24 16:07 12/09/24 16:07 12/09/24 16:07 12/09/24 16:07
Last Documented Vital Signs
Temp Pulse Resp BP Pulse Ox
101.3 F H 112 20 107/71 95
12/09/24 20:49 12/09/24 21:30 12/09/24 21:30 12/09/24 21:00 12/09/24 21:30
*Pulse Oximetry
SaO2: 98
Oxygen Mode of Delivery: Room air
Update Note
Update Note:
Patient presents to the Emergency Department with fever, pelvic pressure, cough____
Number and Complexity of Problems Addressed at the Encounter
� Chronic conditions affecting care:
� Acute Exacerbation and/or Progression of Chronic Illness:
� Differential Diagnosis includes:but not limited to pna, uti, kidney stone, pelvic mass, etc etc etc
Amount and/or Complexity of Data to be Reviewed and Analyzed
� I performed an independent evaluation of and my interpretation is:
EKG: Read by me, sinus tachycardia, no acute ischemia
CT:Acute diverticulitis of the distal sigmoid colon. No evidence for perforation or abscess. Urinary bladder wall thickening may be reactive from the nearby diverticular inflammation, but recommend correlation with a urinalysis
if there is clinical concern for acute cystitis.
Xrays:cxr read by me, nad
Laboratory Studies:mild leukocytosis. Ua not very suggestive of uti.
Other:
� Review of other/old records reveals:
� Clinical information was obtained by an independent historian:
� Prescriptions/Medications Considered but not given:
� Further testing considered but not performed:
Risk of Complications and/or Morbidity or Mortality of Patient Management
� Social determinants of health affecting care:
� Discussion with other providers (PCP, Hospitalists, Consultants, etc):
� Escalation of care including admission/observation vs risk of discharge considered: 10:[address] noted, clinically I think urinary bladder wall thickening most likely reactive given UA not entirely consistent with a UTI.
Patient continues to complain of feeling unwell, declines pain medication at this time. Does meet SIRS criteria. IV fluids and antibiotics started, will discuss with hospitalist for observation/admission.
ED Attending Note
-
Portions of this chart may have been created with voice recognition software.� Occasional wrong word or��sound alike� substitutions may have occurred due to the inherent limitations of voice recognition software.
Discharge Plan
Departure
Patient Disposition: Admit
Date of Disposition: 12/09/24
Time of Disposition: 22:26
Admit to: Telemetry
Presentation/result/management discussed w/ accepting MD/DO: Hospitalist
Condition: Fair
Discharge Problem:
Diverticulitis
Prescriptions:
No Action
buspirone 5 MG tablet
10 mg PO BID
venlafaxine [Effexor XR] 150 MG capsule,extended release 24hr
150 mg PO HS
lisinopril-hydrochlorothiazide 1 EACH tablet
1 tab PO DAILY
Rx Instructions:
20/25mg
eszopiclone [Lunesta] 3 MG tablet
3 mg PO HSPRN PRN (Reason: sleep)
Patient Comments:
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
magnesium oxide 500 MG tablet
500 mg PO DAILY
cholecalciferol (vitamin D3) 2,000 UNITS tablet
2,000 units PO DAILY
simvastatin 20 MG tablet
40 mg PO QPM
Aspir-81
81 mg PO HS
eszopiclone [Lunesta] 3 mg Tablet
3 mg PO HS
Vitamin B-6
100 mg PO DAILY
Vitamin C
1,000 mg PO DAILY
Vitamin D3
1,000 l PO DAILY
dorzolamide-timolol
1 drp ophthalmic (eye) BID
Rx Instructions:
2%/0.5% right eye
iron
65 mg PO DAILY
lisinopril
20 mg PO DAILY
metoprolol succinate
25 mg PO HS
zinc
50 mg PO DAILY
rosuvastatin [Crestor] 20 mg Tablet
20 mg PO DAILY
clopidogrel 75 mg Tablet
75 mg PO DAILY Qty: 19 0RF
pantoprazole [Protonix] 40 mg tablet,delayed release (DR/EC)
40 mg PO DAILY Qty: 20 0RF
Referrals:
Paz Mendenhall MD [Family Provider, Family Practice]
Interventions
Interventions:
*Risk Screen - Suicide Last Done: 12/09/24 16:07
*General Assessment Last Done: 12/09/24 20:55
*Neglect/Abuse Screening Last Done: 12/09/24 16:07
*ED COVID-19 Vaccine History Last Done: 12/09/24 20:55
ED-Female Genitourinary Assessment Last Done: 12/09/24 20:52
Discharge Date and Time
Print Language: MONTENEGRIN
[2024-12-09] MEDS: NSS 1600 ML IV (21:13)
[2024-12-09] MEDS: TYLENOL 1000 MG PO (21:17)
[2024-12-09 21:35] LABS: ALT (SGPT) 25 U/L (0-35); AST (SGOT) 23 U/L (14-36); Albumin 4.6 g/dl (3.5-5.0); Alkaline Phosphatase 90 U/L (38-126); Blood Urea Nitrogen 13 mg/dl (7-17); COVID-19 Antigen Negative (Negative); Calcium 9.6 mg/dl (8.4-10.2); Carbon Dioxide 24 mmol/L (22-30); Chloride 100 mmol/L (98-107); Estimated Creatinine Clearance 105 ml/min; Glucose 106 mg/dl (70-99); Potassium 3.7 mmol/L (3.5-5.1); Sodium 135 mmol/L (135-145); Total Protein 7.6 g/dl (6.3-8.2); eGFR > 60.00
[2024-12-09] MEDS: ZOSYN 50 IV (22:29)
--- NOTE | 2024-12-09 22:54 | HPS.HSE ---
Family Physician
-
Family Physician: Paz Mendenhall MD
Chief Complaint
-
b/l lower quadrant pain
History of Present Illness
64-year-old female with past medical history for hypertension, hyperlipidemia presented to us with bilateral lower quadrant, pelvic, groin pain radiating to lower backsince last night. Patient had a temp of 101.8 at home .she was nauseous .she
complained of diarrhea .denied any vomiting .patient felt pressure with urinating.denied hematuria. Patient denied any headache or dizzy or syncope .patient denies chest pain or short of breath.
CT with diverticulitis. Admitting with sepsis. Initiated antibiotics in the ER. Admitted for further management
Medical History
Past Medical History
Past Medical History: Reports Other
Additional Past Medical History:
Hypertension, chronic insomnia, anxiety, hyperlipidemia, MIA, pulmonary fibrosis, glaucoma
Past Surgical History: Reports Other
Additional Past Surgical History:
Bilateral cataract surgery, , tonsillectomy, laparotomy ovarian cystectomy, oophorectomy, tubal retina repair
Social History
Tobacco: Non-smoker
Alcohol: None
Drug: None
Family History
Family History: Not pertinent
Allergies / Home Medications
Allergies reflects when Allergies were last updated in [employer].
Home Medications with original date entered in [employer]
Allergy/Medication List:
Allergies
Allergy/AdvReac Type Severity Reaction Status Date / Time
Calcium Channel Blocking Allergy Unknown Verified 12/09/24 16:07
[employer]
Home Medications
cholecalciferol (vitamin D3) 50 mcg (2,000 unit) tablet 2,000 units PO DAILY Supplement 12/17/20
lisinopril 20 mg-hydrochlorothiazide 25 mg tablet 1 tab PO DAILY Blood pressure 12/17/20
Aspir-81 81 mg PO HS 02/28/24
Vitamin B-6 100 mg PO DAILY 02/28/24
Vitamin C 1,000 mg PO DAILY 02/28/24
Vitamin D3 1,000 l PO DAILY 02/28/24
dorzolamide-timolol 1 drp ophthalmic (eye) BID 02/28/24
eszopiclone 3 mg tablet (Lunesta) 3 mg PO HS 02/28/24
lisinopril 20 mg PO DAILY 02/28/24
metoprolol succinate 25 mg PO HS 02/28/24
zinc 50 mg PO DAILY 02/28/24
rosuvastatin 20 mg tablet (Crestor) 20 mg PO DAILY 02/29/24
Review of Systems
-
Constitutional: Reports No Symptoms
EENT: Reports No Symptoms
Respiratory: Reports No Symptoms
Cardiac: Reports No Symptoms
Abdomen/GI: Reports Abdominal Pain, Nausea and Diarrhea
: Reports No Symptoms
Musculoskeletal: Reports No Symptoms
Skin: Reports No Symptoms
Neurological: Reports No Symptoms
Endocrine: Reports No Symptoms
Hematologic/Lymphatic: Reports No Symptoms
Psych: Reports No Symptoms
Physical Exam
Vital Signs
Vital Signs
Temp Pulse Resp BP Pulse Ox
101.3 F H 112 20 107/71 95
12/09/24 20:49 12/09/24 21:30 12/09/24 21:30 12/09/24 21:00 12/09/24 21:30
Physical Exam
General: Well Developed, Well Nourished and No Apparent Distress
HEENT: NormoCephalic, Moist mucous membranes and Atraumatic
Respiratory: Clear
Cardiac: S1/S2 and Regular Rhythm; No Murmur or Rub
GI: Soft, Non Tender, Non Distended and Normal Bowel Sounds; No Organomegaly
Rectal: Deferred by Provider
Musculoskeletal: No Clubbing, No Cyanosis and No Edema
Skin: No Rash
Neuro: AO x 3 and Nonfocal/grossly intact
Psych: Calm
Laboratory Results
-
12/09/24 16:24
12/09/24 21:13
Laboratory Results
Lactic Acid 1.2 mmol/L (0.7-2.0) 12/09/24 21:13
Total Bilirubin 2.0 mg/dl (0.2-1.3) H 12/09/24 21:13
AST 23 U/L (14-36) 12/09/24 21:13
ALT 25 U/L (0-35) 12/09/24 21:13
Alkaline Phosphatase 90 U/L (38-126) 12/09/24 21:13
Data Reviewed
-
Diagnostic Radiology: Report Reviewed by me
CT Scan: Report Reviewed by me
Lab Data: Labs Reviewed by me
Impression/Plan
-
# Sepsis secondary to diverticulitis
- WBC 13.5, tachycardic, temp 101.3
- Chest x-ray negative, COVID-negative
-IV Zosyn continued
-NPO, Zosyn prn for n/v
-Dilaudid prn for pain
-Blood culture sent from ER
- CT abdomen pelvis with impression Acute diverticulitis of the distal sigmoid colon. No evidence for perforation or abscess. Urinary bladder wall thickening may be reactive from the nearby diverticular inflammation, but recommend correlation with a
urinalysis if there is clinical concern for acute cystitis.
#HTN
-Patient is hypotensive in the ER
-Hold metoprolol, lisinopril/HCTZ
#HLD
-hold Crestor
#Insomnia
-Continue Lunesta 3 mg at bedtime
Right eye retinal tear June 2020
Right eye glaucoma-continue dorzolamide/timolol 1 drop right eye twice daily
DVT prophylaxis
heparin sq
Full code
--- NOTE | 2024-12-09 23:05 | W.PN.UPDATE ---
Update Note
Progress Note Update
This note serves as an addendum to the H&P by supervisor of guidance and testing TOMÁS�
Isabel RIVAS�
HPI
63F HX essential HTN, anxiety/PTSD, prior CVA seen at ER:
- acute onset of pelvic pressure becomes persistent, associated with fever and mild nausea.
- the pressure as in the pelvic area but also radiating to the perineal area and to her lower back bilaterally.
- felt constipated , thus used laxative and had normal BM without black stool or blood.
ROS
- denies associated chest pain or new shortness of breath but she does note a new occasional cough productive clear phlegm
- denies dysuria, urgency, frequency, hematuria, vaginal mare discharge.
- denies headache, neck pain, photophobia, trouble swallowing, or other complaints.
Patient saw her primary care doctor and was referred to the emergency depar
PHX; see above
Relevant VS
Temp Pulse Resp BP Pulse Ox
101.3 F H 112 20 107/71 95
12/09/24 20:49 12/09/24 21:30 12/09/24 21:30 12/09/24 21:00 12/09/24 21:30
PE
Gen: no apparent distress, not toxic appearing
HEENT: anicteric
Neck: supple
Lungs: CTA
Cor: RRR , Hypotensive
Abdomen:�Soft, diffuse nonspecifc tenderness
CONTINUOUS IMPROVEMENT CONSULTANT: NFND
MS: no edema
Psych: normal and appropriate interaction.
Relevant Data
12/09/24 12/09/24 12/09/24
16:24 17:26 21:13
WBC 13.5 H
Hgb 13.6
Creatinine 0.6
eGFR > 60.00
Total Bilirubin 2.0 H
Urine Nitrite (Reflex) Negative
Urine WBC (Reflex) 6-10
Ur Squamous Epith Cells 16-20
CXR- No acute cardiopulmonary process
CT Abd/pelvis W Iv Cont
- Acute diverticulitis of the distal sigmoid colon.
- No evidence for perforation or abscess.
- Urinary bladder wall thickening may be reactive from the nearby diverticular inflammation, but recommend correlation with a urinalysis if there is clinical concern for acute cystitis.
Last hospitalist admission: Date of Admission: 02/28/24 - Date of Discharge: 02/29/24
Principal Discharge diagnosis : TIA
ASSESSMENT & PLAN
Pending Rx reconciliation
Sepsis due ti acute uncomplicated distal sigmoid diverticulitis - first attack
- Hi grade fver, HR > 100 , WCC > 10
- NPO and septic Fluid with LR IVF
- Empiric Zosyn
- PRN narcotic analgesia
- BCx sent
- CRS consulted
HX daily headaches
-Patient reports takes 2 Excedrin Migraine typically daily did have prior Nurtec that helps
-Had lengthy discussion for patient to follow-up with either PCP or neurologist to discuss prophylactic daily migraine medications
-Continue vitamin B6 100 mg daily, selenium 200 mg daily, mag oxide 500 mg daily
HX HTN�benign
-Hold all anti HTN Meds sucha as lisinopril/HCTZ 20-25 mg p.m., lisinopril 10 mg a.m.
- Hold STORAGE ENGINEER ASA
HLD
- Hold simvastatin 40 mg every afternoon
Anxiety/depression HX
HX PTSD 10mg twice daily
- No longer on on Effexor and BuSpar
HX OA with prominent Aydee's nodes left index, pinky finger, right pinky finger
HX Sleep apnea
- Uses fluctuating nasal cushion 5-20 does not have with her today
Insomnia
- on Lunesta 3 mg at bedtime
Other PMH:
HX influenza A 03/03/2023
Right eye retinal tear June 2020
Right eye glaucoma-continue dorzolamide/timolol 1 drop right eye twice daily
DVT Px: SQH
Code: Full
IMU
[2024-12-09] MEDS: LR 1000 IV (23:36)
--- NOTE | 2024-12-09 23:54 | EDRN ---
Pt's BPs have been trending down with her systolic being in the high 80s since 2300. The remainder 300 mL of 1,600 mL NSS bolus put on an IV pole which brought BP up to 94/59. BP's began to drop again to 88/55. Processed and started the pt's LR 1L
100mL maintenance fluid order at 2336. [place] texted house provider for IMU about situation. Most recent BP is 89/61 with a MAP of 71. Pt is not symptomatic and resting comfortably in bed with no complaints at this time. Monitoring BP q15.
[2024-12-10] VITALS (30 sets, daily range): BP systolic 69–131; BP diastolic 40–77; BMI 35.0
--- NOTE | 2024-12-10 01:47 | PTCARENOTE ---
pt admitted from the ED, pt is AAOx3, able to make needs known. IV fluids infusing. no complaints of abdominal pain present, just some tenderness. BP soft but MAP >65 at this time. own CPAP ordered. pt aware of need to ring to use the bathroom
because of low BP. stage 2 on buttock, skin prep and foam applied. pt oriented to room, call patton within reach, care ongoing.
--- NOTE | 2024-12-10 02:09 | W.PN.UPDATE ---
Addendum entered and electronically signed by NELLI Ramirez 12/10/24 19:50:
NSS bolus 500 CC, Midodrine 10mg POx1
BP 102/69 HR 80's
Original Note:
Update Note
Progress Note Update
BP 85/53 MAP 64 HR
NSS 500CC bolus plus Midodrine
Patient without any new complaints, continue LR IV
[2024-12-10] MEDS: TYLENOL 650 MG PO ×2 (02:20→21:26)
[2024-12-10] MEDS: NSS 500 IV (02:21)
--- NOTE | 2024-12-10 03:25 | PTCARENOTE ---
pt's BP continues to be low, 85/53 MAP 64. notified covering ADJUNCT PROFESSOR OF VOICE- IV bolus hung, PO 10mg midodrine given. pt is asymptomatic. BP responding at this time. care ongoing.
[2024-12-10] MEDS: UNASYN IV (05:58)
[2024-12-10 06:17] LABS: Hematocrit 34.4 % (37.0-47.0); Hemoglobin 12.2 g/dL (12.0-16.0); Mean Corp Hgb Conc. 35.5 g/dL (33.0-37.0); Mean Corpuscular Volume 91.0 fL (81.0-99.0); Platelet Count 187 10^3/uL (130-400); Red Cell Dist. Width 12.7 % (11.5-14.5)
[2024-12-10 07:01] LABS: Blood Urea Nitrogen 11 mg/dl (7-17); Calcium 8.7 mg/dl (8.4-10.2); Carbon Dioxide 21 mmol/L (22-30); Chloride 107 mmol/L (98-107); Estimated Creatinine Clearance 108 ml/min; Glucose 97 mg/dl (70-99); Potassium 3.8 mmol/L (3.5-5.1); Sodium 138 mmol/L (135-145); eGFR > 60.00
[2024-12-10] MEDS: DILAUDID 0.5 MG IV ×2 (08:31→17:06)
[2024-12-10] MEDS: HEPARIN 5000 UNITS SC ×2 (08:31→20:25)
[2024-12-10] MEDS: TRUSOPT 2% OPHTHALMIC SOLUTION 1 DROP RIGHT EYE ×2 (08:32→20:25)
[2024-12-10] MEDS: TIMOPTIC 0.5% OPHTHALMIC SOLUTION 1 DROP RIGHT EYE ×2 (08:32→20:25)
--- NOTE | 2024-12-10 09:18 | W.PN.HOSP.TC ---
Today's Communication/Plan
-
see outlined plan
Assessment / Plan
Assessment / Plan
Assessment:
Sepsis POA (leukocytosis, tachycardia) in setting of acute complicated diverticulitis - 1st attack
- CT: Acute diverticulitis of the distal sigmoid colon. No evidence for perforation or abscess
- CRS consulted
- NPO/IVF
- pain control, anti-emetics
- Zosyn, day 1
- follow cultures
Urinary bladder wall thickening suspect reactive to adjacent diverticulitis
- UA not suggestive of infection
Chronic daily headaches
- OP Evaluation with PCP or Neurology for maintenance medications
- continue vitamin cocktail
Essential HTN
- holding GABRIELLE/HCTZ/BB
HLD - holding statin
Anxiety/Depression
Hx of PTSD
- not on meds
Hx of OA with prominent Aydee's nodes left index, pinky finger, right pinky finger
Hx of MIA
Insomnia
- on Lunesta
Right eye glaucoma
- continue dorzolamide/timolol 1 drop right eye twice daily
DVT ppx: SC Heparin
Code: Full
Anticipated Discharge: > 48 hours
Subjective/Interval History
-
Date of Service: December 10, 2024
reports some lower abdominal discomfort, controlled with pain meds
mild nausea, no vomiting
no fever/chills
Objective Data
-
Labs:
Laboratory Results
12/09/24 12/10/24
21:13 06:04
WBC 11.7 H
Hgb 12.2
Hct 34.4 L
Plt Count 187
Sodium 135 138
Potassium 3.7 3.8
Chloride 100 107
Carbon Dioxide 24 21 L
BUN 13 11
Creatinine 0.6 0.6
Glucose 106 H 97
Calcium 9.6 8.7
Total Bilirubin 2.0 H
AST 23
ALT 25
Alkaline Phosphatase 90
Vital Signs:
Vital Signs
Temp Pulse Resp BP Pulse Ox
98.5 F 80 15 97/74 96
12/10/24 07:57 12/10/24 08:38 12/10/24 08:38 12/10/24 08:38 12/10/24 08:00
Physical Exam
-
General: No Apparent Distress
HEENT: Normocephalic and Atraumatic
Respiratory: Negative Wheezes
Cardiac: Regular Rhythm and S1/S2
GI: Soft and Tender
Genito-urinary: No Costovertebral Tender
Neuro: AO x 3
Psych: Calm
Data Reviewed
-
Total Time Spent with Patient (in minutes): 42
Labs: Labs Reviewed by me
--- NOTE | 2024-12-10 09:27 | PTCARENOTE ---
Upon assessing pt this AM as well as giving AM medications. Pt expressed concern that she was not receiving lisinopril. Pt informed that she is not currently ordered that medication. Pt expressed wanting to take medication from home. This RN
informed patient that she is unable to take home medications unless they are ordered to be taken. RN also informed pt that her blood pressure is low and is unable to take that medication at time.
[2024-12-10] MEDS: ZOSYN 50 IV ×3 (11:31→21:26)
[2024-12-10] MEDS: LR 1000 IV ×2 (11:31→20:26)
--- NOTE | 2024-12-10 12:42 | CON.CRS ---
Addendum entered and electronically signed by Taye Sauceda MD 12/10/24 13:02:
I saw and examined the patient.
The FACULTY RESEARCH ASSISTANT's note was reviewed and I agree with the note.
Comment: C/o 3 days of lower ab pain and pressure discomfort with urination, denies pneumaturia or other changes to urine, febrile to 101 by her account prior to admit; ttp mod-sev to LLQ and suprapubic area, CT with uncomplicated diverticulitis,
inflamed segment abuts the urinary bladder but no gas in the bladder is noted; no abscess, no free air, initially soft BP, febrile and leukocytosis, BP responsive to IV fluids, plan for trial of nonop mgmt with IV abx and bowel rest
Original Note:
Consultation
-
Date/Time Consultation Performed: 12/10/24 1030
Medical History
-
Chief Complaint: abdominal pain
History of Present Illness:
Ms Ramos is a 64 yo with a h/o , laparotomy for ovarian cystectomy ?concurrent oophorectomy 1978, MIA on cpap and no prior episodes of diverticulitis who presented with suprapubic abdominal pain with sensation of bladder and rectal pressure
which began 3 days ago and has been increasing with associated fevers. She notes that her symptoms initial began with bladder pressure during voiding with fever of 101 at home about 3 days ago. Her pain increased with rectal pressure as well and
although she had been passing BM's daily, she tried a laxative to help. She was able to pass a looser stool after the laxative but did not feel relief. She notes mild associated nausea but no vomiting. She reports ongoing bladder pressure and
reports that she feels she is not emptying her bladder or able to void despite sensation to do so. Lower abdominal pain is present with suprapubic tenderness on exam. No significant abdominal distention noted. She denies prior episodes of
diverticulitis and last colonoscopy was in 2019 which did demonstrate sigmoid diverticulosis.
Past Medical History
Past Medical History: HTN, Hypercholesterolemia and Other (glaucoma, migraines, depression/anxiety, pulmonary fibrosis, morbid obesity)
Past Surgical History: , Gynecological (laparotomy for ovarian cystectomy (?oophorectomy) in 1978), Tonsilectomy and Other (retinal repair 2020, Colonoscopy 2018 (sigmoid diverticulosis, polyp, hemorrhoids))
Social History
Tobacco: Non-Smoker
Alcohol: None
Family History
Family History: Reviewed & Not Pertinent
Allergies / Home Medications
Allergy/AdvReac Type Severity Reaction Status Date / Time
Calcium Channel Blocking Allergy Unknown Verified 12/09/24 16:07
[facility]
�Medication �Instructions �Recorded �Confirmed �Type
cholecalciferol (vitamin D3) 50 2,000 units PO DAILY Supplement 12/17/20 12/09/24 History
mcg (2,000 unit) tablet
lisinopril 20 1 tab PO DAILY Blood pressure 12/17/20 12/09/24 History
mg-hydrochlorothiazide 25 mg tablet
Aspir-81 81 mg PO HS 02/28/24 12/09/24 History
Vitamin B-6 100 mg PO DAILY 02/28/24 12/09/24 History
Vitamin C 1,000 mg PO DAILY 02/28/24 12/09/24 History
Vitamin D3 1,000 l PO DAILY 02/28/24 12/09/24 History
dorzolamide-timolol 1 drp ophthalmic (eye) BID 02/28/24 12/09/24 History
eszopiclone 3 mg tablet (Lunesta) 3 mg PO HS 02/28/24 12/09/24 History
lisinopril 20 mg PO DAILY 02/28/24 12/09/24 History
metoprolol succinate 25 mg PO HS 02/28/24 12/09/24 History
zinc 50 mg PO DAILY 02/28/24 12/09/24 History
rosuvastatin 20 mg tablet (Crestor) 20 mg PO DAILY 02/29/24 12/09/24 History
Review of Systems
-
History Source: Patient and Family ( via telephone)
All other systems: Negative unless noted
A 10 point review of systems was completed, and was negative except as per HPI.
Physical Exam
Vital Signs
Temp 98.5 F 12/10/24 07:57
Pulse 80 12/10/24 08:38
Resp Rate 15 12/10/24 08:38
Blood pressure 97/74 12/10/24 08:38
SaO2 96 12/10/24 08:00
12/09/24 12/10/24 12/11/24
06:59 06:59 06:59
Actual Weight 95.3 kg
Body Mass Index (BMI) 35.0
Lab Results / Allergies
12/10/24 06:04
12/10/24 06:04
WBC 11.7 10^3/uL (4.8-10.8) H 12/10/24 06:04
Hgb 12.2 g/dL (12.0-16.0) 12/10/24 06:04
Hct 34.4 % (37.0-47.0) L 12/10/24 06:04
Plt Count 187 10^3/uL (130-400) 12/10/24 06:04
Abs Immat Gran (auto) 0.0 10^3/uL (0-0.05) 12/09/24 16:24
Neutrophils % 74.4 % (42.2-75.2) 12/09/24 16:24
Allergy/AdvReac Type Severity Reaction Status Date / Time
Calcium Channel Blocking Allergy Unknown Verified 12/09/24 16:07
[facility]
Physical Exam
General: Well Developed and Well Nourished
HEENT: Normocephalic and Moist Mucous Membranes
Respiratory: Non Labored Respirations
GI: Soft, Non Distended, Tender (suprapubic/lower abdominal) and Obese
Skin: Warm and Other (flushed)
Neuro: Awake, Alert and AO x 3
Psych: Calm
Data Reviewed
-
CT Scan: Image Personally Visualized and interpreted, Report Reviewed by me, Discussed with Physician, Discussed with Nurse and Discussed with Family
Labs: Labs Reviewed by me, Discussed with Physician, Discussed with Patient and Discussed with Family
Old Records: Reviewed
Assessment / Plan
-
64 yo female without prior episodes of diverticulitis presenting with 1st episode of uncomplicated diverticulitis. Notes pain/fevers x3 days. Mild leukocytosis present on admission to 13.5 trending down today to 11.7. Hypotensive with fevers (tmax
101.3) with sepsis POA. BP responding well to IVF. CT imaging reviewed with uncomplicated diverticulitis present of the sigmoid colon over the region of the bladder. No perforation or abscess. UA with 2+leucocyte esterase, few bacteria with cx
pending. Symptoms of bladder pressure/urgency likely related to location of diverticulitis infection.
Plan:
Continue NPO for bowel rest
IVF at 140ml/hr
IV zosyn q6h
Medical management as per primary team, d/w hospitalist
No plans for emergent surgery at this time, will follow for improvement with bowel rest, abx and supportive measures. Reviewed plan with patient's via telephone at her request
--- NOTE | 2024-12-10 13:27 | CM ---
Reviewed the chart notes and spoke with the patient at the bedside. The patient resides with her spouse in a two story home with one step to enter. The patient has in home CPAP, nebulizer, home O2, and rw. The patient has had [facility] in the past,
but no SNF. CM continues to be available to patient/family and is monitoring medical plan for needs at discharge.
Plan: Discharge plans will depend on the patient's progress.
[2024-12-10] MEDS: AMBIEN 10 MG PO (21:26)
[2024-12-11] VITALS (9 sets, daily range): BP systolic 108–151; BP diastolic 67–94
--- NOTE | 2024-12-11 00:19 | PTCARENOTE ---
assumed care of patient. pt is AAOx3, able to make needs known. VSS. pulse ox 95% 2L, own CPAP on HS. pt with some complaints of pain to lower abdomen radiating to back, pt aware she can get dilaudid but asking for tylenol instead. IV fluids
infusing. pt in good spirits. care ongoing.
[2024-12-11] MEDS: LR 1000 IV ×3 (03:18→18:57)
[2024-12-11] MEDS: ZOSYN 50 IV ×4 (03:18→21:19)
[2024-12-11] MEDS: TYLENOL 650 MG PO (10:14)
[2024-12-11] MEDS: HEPARIN 5000 UNITS SC ×2 (10:15→20:13)
[2024-12-11] MEDS: TIMOPTIC 0.5% OPHTHALMIC SOLUTION 1 DROP RIGHT EYE ×2 (10:17→20:15)
[2024-12-11] MEDS: TRUSOPT 2% OPHTHALMIC SOLUTION 1 DROP RIGHT EYE ×2 (10:17→20:15)
[2024-12-11] MEDS: ATIVAN 0.5 MG PO ×2 (12:34→20:29)
--- NOTE | 2024-12-11 14:20 | W.PN.CRS1 ---
Addendum entered and electronically signed by Taye Sauceda MD 12/11/24 18:38:
I saw and examined the patient.
The Transportation Design Engineer's note was reviewed and I agree with the note.
Comment: Incrementally improved, less pain, mild ttp to suprapubic area, trial cld cont iv abx
Original Note:
Today's Communication / Plan
-
IVF/Clears
IV ABX
Assessment/Plan
-
64 yo female without prior episodes of diverticulitis presenting with 1st episode of uncomplicated diverticulitis.
AFVSS
labs unable to be drawn today, mild leukocytosis on presentation
Some symptomatic improvement
Plan:
Continue IV abx
Start clears
IVF
Medical management as per primary team, d/w hospitalist
No plans for emergent surgery at this time, will follow for improvement with abx and supportive measures
Subjective Data
Subjective Data
Date of Service: December 11, 2024
Pt seen and examined at bedside with Dr. Sauceda. Denies n/v. Pain improved but still present. Bladder pressure continues but voiding without difficulty. Anxious and requesting anxiolytic
Objective Data
-
Vital Signs
Temp Pulse Resp BP Pulse Ox
97.2 F 81 17 120/70 94
12/11/24 07:20 12/11/24 14:00 12/11/24 14:00 12/11/24 14:00 12/11/24 14:00
Physical Exam
-
General: AOx3 and Other (tearful/anxious)
HEENT: Grossly Normal
Abdomen: Soft, Non Distended and Tender (suprapubic)
Skin: Warm and Dry
--- NOTE | 2024-12-11 15:28 | W.PN.HOSP.TC ---
Today's Communication/Plan
-
continue clears
continue Abx
prn Ativan for anxiety
Assessment / Plan
Assessment / Plan
Assessment:
Sepsis POA (leukocytosis, tachycardia) in setting of acute complicated diverticulitis - 1st attack
- CT: Acute diverticulitis of the distal sigmoid colon. No evidence for perforation or abscess
- CRS following
- diet: clears
- pain control, anti-emetics
- Zosyn, day 2
- cultures NGTD
Urinary bladder wall thickening suspect reactive to adjacent diverticulitis
- UA not suggestive of infection; Ucx mixed cm
Chronic daily headaches
- OP Evaluation with PCP or Neurology for maintenance medications
- continue vitamin cocktail
Essential HTN
- holding GABRIELLE/HCTZ/BB
HLD - holding statin
Anxiety/Depression
Hx of PTSD
- not on meds
- Ativan prn for acute anxiety during hospitalization
Hx of OA with prominent Aydee's nodes left index, pinky finger, right pinky finger
Hx of MIA
Insomnia
- on Lunesta
Right eye glaucoma
- continue dorzolamide/timolol 1 drop right eye twice daily
DVT ppx: SC Heparin
Code: Full
Anticipated Discharge: 24 - 48 hours
Subjective/Interval History
-
Date of Service: December 11, 2024
no n/v
pain improving
placed on clears
anxious over diagnosis/treatment
Objective Data
-
Labs:
Laboratory Results
12/11/24
15:05
WBC Pending
Hgb Pending
Hct Pending
Plt Count Pending
Sodium Pending
Potassium Pending
Chloride Pending
Carbon Dioxide Pending
BUN Pending
Creatinine Pending
Glucose Pending
Calcium Pending
Vital Signs:
Vital Signs
Temp Pulse Resp BP Pulse Ox
97.2 F 81 17 120/70 96
12/11/24 07:20 12/11/24 14:00 12/11/24 14:00 12/11/24 14:00 12/11/24 14:36
Physical Exam
-
General: No Apparent Distress
HEENT: Normocephalic and Atraumatic
Respiratory: Negative Wheezes
Cardiac: Regular Rhythm and S1/S2
GI: Tender
Genito-urinary: No Costovertebral Tender
Neuro: AO x 3
Psych: Calm
Data Reviewed
-
Total Time Spent with Patient (in minutes): 42
Labs: Labs Reviewed by me
[2024-12-11 20:47] LABS: Hematocrit 30.8 % (37.0-47.0); Hemoglobin 10.8 g/dL (12.0-16.0); Mean Corp Hgb Conc. 35.1 g/dL (33.0-37.0); Mean Corpuscular Volume 89.3 fL (81.0-99.0); Platelet Count 216 10^3/uL (130-400); Red Cell Dist. Width 12.0 % (11.5-14.5)
[2024-12-11 21:09] LABS: Blood Urea Nitrogen 8 mg/dl (7-17); Calcium 9.1 mg/dl (8.4-10.2); Carbon Dioxide 26 mmol/L (22-30); Chloride 108 mmol/L (98-107); Estimated Creatinine Clearance 93 ml/min; Glucose 93 mg/dl (70-99); Potassium 4.0 mmol/L (3.5-5.1); Sodium 140 mmol/L (135-145); eGFR > 60.00
[2024-12-11] MEDS: AMBIEN 10 MG PO (21:19)
[2024-12-12] MEDS: ZOSYN 50 IV ×4 (03:37→22:11)
[2024-12-12] MEDS: LR 1000 IV (04:48)
[2024-12-12 07:45] VITALS: BP 130/72
[2024-12-12] MEDS: TRUSOPT 2% OPHTHALMIC SOLUTION 1 DROP RIGHT EYE ×2 (07:56→22:05)
[2024-12-12] MEDS: TIMOPTIC 0.5% OPHTHALMIC SOLUTION 1 DROP RIGHT EYE ×2 (07:56→22:05)
[2024-12-12] MEDS: HEPARIN 5000 UNITS SC ×2 (07:56→15:36)
[2024-12-12 08:35] LABS: Hematocrit 29.8 % (37.0-47.0); Hemoglobin 10.4 g/dL (12.0-16.0); Mean Corp Hgb Conc. 34.9 g/dL (33.0-37.0); Mean Corpuscular Volume 92.0 fL (81.0-99.0); Platelet Count 213 10^3/uL (130-400); Red Cell Dist. Width 12.1 % (11.5-14.5)
[2024-12-12] MEDS: TYLENOL 650 MG PO (08:50)
[2024-12-12 10:01] LABS: Blood Urea Nitrogen 8 mg/dl (7-17); Calcium 8.6 mg/dl (8.4-10.2); Carbon Dioxide 26 mmol/L (22-30); Chloride 108 mmol/L (98-107); Estimated Creatinine Clearance 93 ml/min; Glucose 76 mg/dl (70-99); Potassium 4.0 mmol/L (3.5-5.1); Sodium 140 mmol/L (135-145); eGFR > 60.00
--- NOTE | 2024-12-12 10:43 | CM ---
CM reviewed chart, patient seen bedside, care ongoing.
Patient remains on IV antibiotics.
CM will continue to follow for all d/c planning needs.
Plan; home no needs, watch for home infusion needs
--- NOTE | 2024-12-12 10:49 | W.PN.CRS1 ---
Today's Communication / Plan
-
full liquids
continue abx
Assessment/Plan
-
64 yo female without prior episodes of diverticulitis presenting with 1st episode of uncomplicated diverticulitis.
AFVSS
WBC: 4.5, Hgb 10.4 (10.8)
Plan:
-Continue IV abx
-Advance to fulls
-Medical management as per primary team, d/w hospitalist
-No plans for emergent surgery at this time, will follow for improvement with abx and supportive measures
Subjective Data
Subjective Data
Date of Service: December 12, 2024
Patient states she has no nausea or vomiting. She denies blood in her stools. She is having some loose stools. She has flatus. Her pain is mild.
Objective Data
-
Vital Signs
Temp Pulse Resp BP Pulse Ox
97.8 F 68 16 130/72 98
12/12/24 07:45 12/12/24 07:45 12/12/24 07:45 12/12/24 07:45 12/12/24 07:45
Intake & Output
12/11/24 12/12/24 12/13/24
06:59 06:59 06:59
Intake Total 2139 / 0
Output Total 0 / 0
Balance 2140 / 2140
Intake:
Oral fluids 840 / 840
IV fluids (Total) 1200 / 1200
IV piggybacks 100 / 100
Output:
Urine, Voided 0 / 0
Other:
Number of approximated LARGE 1
amounts of urine
Lab Results
12/12/24 07:03
12/12/24 07:03
Physical Exam
-
General: No Acute Distress and AOx3
Abdomen: Soft, Non Distended and Tender (RUQ - mild)
Skin: Warm and Dry
--- NOTE | 2024-12-12 10:58 | W.PN.HOSP.TC ---
Today's Communication/Plan
-
cont Abx, advance diet, mgmt as per [facility]
Assessment / Plan
Assessment / Plan
64yo F with PMHx of R eye glaucoma, retinal detachment, HTN, HLD came with acute onset of abdominal pain found uncomplicated diverticulitis
A/P:
#Acute diverticulitis with possible sepsis on admision
first episode
uncomplicated
Advised to contact GI for colonoscopy in 4-6 weks: previous done in in 2018
Zosyn and advance to Augmentin when discharged
[facility] follows
Advance diet as tolerated
#UTI ruled out
UA not concerning for infection
#EssentiaL HTN
#HLD
#Insomnia
cont home meds
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
no particular f/u since asymptomatic
#Mild leukopenia
reactive
CBC in 1 week upon recovery
#Elevated bili
no biliary pathology on CT
#Multiple hepatic cysts
no particular f/u advised
DVT ppx hep
FUll code
I have spent at least 51min reviewing chart, test results, communication with consultants and providing direct patient care
Anticipated Discharge: Within 24 hours
Subjective/Interval History
-
Date of Service: December 12, 2024
Objective Data
-
Labs:
Laboratory Results
12/12/24
07:03
WBC 4.5 L
Hgb 10.4 L
Hct 29.8 L
Plt Count 213
Sodium 140
Potassium 4.0
Chloride 108 H
Carbon Dioxide 26
BUN 8
Creatinine 0.7
Glucose 76
Calcium 8.6
Vital Signs:
Vital Signs
Temp Pulse Resp BP Pulse Ox
97.8 F 68 16 130/72 98
12/12/24 07:45 12/12/24 07:45 12/12/24 07:45 12/12/24 07:45 12/12/24 07:45
I&O
12/11/24 12/12/24 12/13/24
06:59 06:59 06:59
Intake Total 2139
Output Total 0 / 0
Balance 2139
Review of Systems
-
History Source: Patient
All other systems: Reviewed and negative
Abdomen/GI: Reports Abdominal Pain
Physical Exam
-
General: Comfortable
HEENT: Normocephalic
Cardiac: Regular Rhythm
GI: Nondistended and Tender (RLQ)
Neuro: Awake, Alert, Oriented and AO x 3
Psych: Calm
[2024-12-12] MEDS: LR IV (11:11)
[2024-12-12 11:35] LABS: ALT (SGPT) 14 U/L (0-35); AST (SGOT) 14 U/L (14-36); Albumin 3.3 g/dl (3.5-5.0); Alkaline Phosphatase 68 U/L (38-126); Total Protein 5.7 g/dl (6.3-8.2)
[2024-12-12 15:58] VITALS: BP 121/70
[2024-12-12 16:53] LABS: C-Reactive Protein 70.90 mg/L (0.0-10.00)
[2024-12-12] MEDS: AMBIEN 10 MG PO (22:10)
[2024-12-12 23:30] VITALS: BP 136/78
[2024-12-13] MEDS: HEPARIN 5000 UNITS SC ×2 (00:50→08:15)
[2024-12-13] MEDS: ZOSYN 50 IV ×2 (04:20→08:14)
[2024-12-13 06:53] LABS: Hematocrit 32.6 % (37.0-47.0); Hemoglobin 11.2 g/dL (12.0-16.0); Mean Corp Hgb Conc. 34.4 g/dL (33.0-37.0); Mean Corpuscular Volume 92.1 fL (81.0-99.0); Nucleated Red Blood Cells % 0 %; Platelet Count 236 10^3/uL (130-400); Red Cell Dist. Width 12.0 % (11.5-14.5)
[2024-12-13 07:29] LABS: ALT (SGPT) 18 U/L (0-35); AST (SGOT) 19 U/L (14-36); Albumin 3.5 g/dl (3.5-5.0); Alkaline Phosphatase 76 U/L (38-126); Blood Urea Nitrogen 5 mg/dl (7-17); Calcium 8.9 mg/dl (8.4-10.2); Carbon Dioxide 26 mmol/L (22-30); Chloride 109 mmol/L (98-107); Estimated Creatinine Clearance 81 ml/min; Glucose 90 mg/dl (70-99); Potassium 4.3 mmol/L (3.5-5.1); Sodium 141 mmol/L (135-145); Total Protein 6.2 g/dl (6.3-8.2); eGFR > 60.00
[2024-12-13 07:38] LABS: C-Reactive Protein 41.10 mg/L (0.0-10.00)
[2024-12-13 07:45] VITALS: BP 124/80
[2024-12-13] MEDS: TIMOPTIC 0.5% OPHTHALMIC SOLUTION 1 DROP RIGHT EYE (08:15)
[2024-12-13] MEDS: TRUSOPT 2% OPHTHALMIC SOLUTION 1 DROP RIGHT EYE (08:15)
[2024-12-13] MEDS: TYLENOL 650 MG PO (08:22)
--- NOTE | 2024-12-13 09:17 | W.PN.CRS1 ---
Today's Communication / Plan
-
low reside
d/c per primary team
finish course of antibiotic as an outpatient
Assessment/Plan
-
64 yo female without prior episodes of diverticulitis presenting with 1st episode of uncomplicated diverticulitis.
AFVSS
WBC: 4.9, Hgb 11.2 (10.4)
Plan:
-Continue IV abx
-Advance to low residue
-Medical management as per primary team, d/w hospitalist
-No plans for emergent surgery at this time, will follow for improvement with abx and supportive measures
-Dispo per primary team. Okay for d/c if tolerating a low residue diet. Send home on a course of oral antibiotics.
Subjective Data
Subjective Data
Date of Service: December 13, 2024
Patient states her pain is better. She has some mild RLQ pain but not much. Denies nausea or vomiting.
Objective Data
-
Vital Signs
Temp Pulse Resp BP Pulse Ox
97.9 F 66 16 124/80 98
12/13/24 07:45 12/13/24 07:45 12/13/24 07:45 12/13/24 07:45 12/13/24 07:45
Intake & Output
12/12/24 12/13/24 12/14/24
06:59 06:59 06:59
Intake Total 2140 / 2140 780 / 780
Output Total 0 / 0
Balance 2140 / 2140 780 / 780
Intake:
Oral fluids 840 / 840 780 / 780
IV fluids (Total) 1200 / 1200
IV piggybacks 100 / 100
Output:
Urine, Voided 0 / 0
Other:
Number of approximated SMALL 3
amounts of urine
Number of approximated LARGE 1
amounts of urine
Lab Results
12/13/24 06:15
12/13/24 06:15
Physical Exam
-
General: No Acute Distress and AOx3
Abdomen: Soft, Non Distended and Tender (mild RLQ)
Skin: Warm and Dry
--- NOTE | 2024-12-13 11:00 | W.PN.HOSP.TC ---
Today's Communication/Plan
-
dc
Assessment / Plan
Assessment / Plan
64yo F with PMHx of R eye glaucoma, retinal detachment, HTN, HLD came with acute onset of abdominal pain found uncomplicated diverticulitis, tolerated solids, no fevers, very mid resdual pain on day of d/c. Recommended colonoscopy in 4-6 weeks with
established GI. Medically stable to be d/c home to complete 10 days Abx as agreed with [facility]. Augmentin started
A/P:
#Acute diverticulitis with possible sepsis on admission
first episode
uncomplicated
Advised to contact GI for colonoscopy in 4-6 weeks: previous done in in 2018
Zosyn and advance to Augmentin when discharged
[facility] follows
Advance diet as tolerated
#UTI ruled out
UA not concerning for infection
#Essential HTN
#HLD
#Insomnia
cont home meds
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
no particular f/u since asymptomatic
#Mild leukopenia
reactive
resolved
#Elevated bili
2/2 diverticulitis
resolved
#Multiple hepatic cysts
no particular f/u advised
DVT ppx hep
FUll code
I have spent at least 36min reviewing chart, test results, communication with consultants and providing direct patient care
Anticipated Discharge: Today
Subjective/Interval History
-
Date of Service: December 13, 2024
Objective Data
-
Labs:
Laboratory Results
12/13/24
06:15
WBC 4.9
Hgb 11.2 L
Hct 32.6 L
Plt Count 236
Sodium 141
Potassium 4.3
Chloride 109 H
Carbon Dioxide 26
BUN 5 L
Creatinine 0.8
Glucose 90
Calcium 8.9
Total Bilirubin 0.9
AST 19
ALT 18
Alkaline Phosphatase 76
Vital Signs:
Vital Signs
Temp Pulse Resp BP Pulse Ox
97.9 F 66 16 124/80 98
12/13/24 07:45 12/13/24 07:45 12/13/24 07:45 12/13/24 07:45 12/13/24 07:45
I&O
12/12/24 12/13/24 12/14/24
06:59 06:59 06:59
Intake Total 2140 / 2140 780 / 780
Output Total 0 / 0
Balance 2140 / 2140 780 / 780
Review of Systems
-
History Source: Patient
All other systems: Reviewed and negative
Physical Exam
-
General: Comfortable
HEENT: Normocephalic
GI: Soft, Nontender and Nondistended
Neuro: Awake, Alert, Oriented and AO x 3
Psych: Calm
--- NOTE | 2024-12-13 11:04 | W.DCSUMMARY ---
Discharge Summary
Discharge Data
Date of Admission: 12/09/24
Date of Discharge: 12/13/24
-
Pending Results: No
Hospital Course
64yo F with PMHx of R eye glaucoma, retinal detachment, HTN, HLD came with acute onset of abdominal pain found uncomplicated diverticulitis, tolerated solids, no fevers, very mid resdual pain on day of d/c. Recommended colonoscopy in 4-6 weeks with
established GI. Medically stable to be d/c home to complete 10 days Abx as agreed with [facility]. Augmentin started
I have spent at least 36min reviewing chart, test results, communication with consultants and providing direct patient care
Patient was managed for:
#Acute diverticulitis with possible sepsis on admission
#UTI ruled out
#Essential HTN
#HLD
#Insomnia
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
#Mild leukopenia
#Elevated bili
#Multiple hepatic cysts
Discharge Plan
-
Patient Disposition: Home (Routine Discharge)
Discharge Diagnosis/Procedures: diverticulitis
Diet: Other diet
Additional Diets: high fiber
Activity Restrictions/Additional Instructions:
Schedule appointment with your GI to evaluate if colonoscopy needed in 4-6 weeks
Referrals:
Paz Mendenhall MD [Family Provider, Family Practice]
Sang Corrales MD [Active, [facility]] - in two weeks
Prescriptions:
New
amoxicillin-pot clavulanate 875-125 mg tablet
1 tab PO Q12H Qty: 12 0RF
Continued
lisinopril-hydrochlorothiazide 1 EACH tablet
1 tab PO DAILY
Rx Instructions:
20/25mg
cholecalciferol (vitamin D3) 2,000 UNITS tablet
2,000 units PO DAILY
Aspir-81
81 mg PO HS
eszopiclone [Lunesta] 3 mg Tablet
3 mg PO HS
Vitamin B-6
100 mg PO DAILY
Vitamin D3
1,000 l PO DAILY
dorzolamide-timolol
1 drp ophthalmic (eye) BID
Rx Instructions:
2%/0.5% right eye
metoprolol succinate
25 mg PO HS
rosuvastatin [Crestor] 20 mg Tablet
20 mg PO DAILY
Discontinued
Vitamin C
1,000 mg PO DAILY
lisinopril
20 mg PO DAILY
zinc
50 mg PO DAILY
Discharge Orders:
Discharge Patient (As Directed); Ordered 12/13/24
Ordered By: Jack Murcia
Discharge Date and Time
Print Language: UPPER SORBIAN
--- NOTE | 2024-12-13 11:53 | CM ---
Patient seen at bedside on . Patient states that she will go home with family and no concerns at this time. CM will continue to follow for discharge planning needs.
Plan; home with no needs.
[2024-12-13 15:11] VITALS: BP 149/96
== END 2024-12-13 16:03 | disposition home or self-care (01) | DRG 872 ==
LOC: 4 WEST ACU 23:10
PROVIDERS: Emergency Medicine; Registered Nurse; Surgery; ADMITTING PHYSICIAN Internal Medicine; ATTENDING PHYSICIAN Internal Medicine; EMERGENCY PHYSICIAN Emergency Medicine; FAMILY PHYSICIAN Family Medicine; OTHER PHYSICIAN Surgery
DX: A41.9 Sepsis, unspecified organism (principal); K57.32 Diverticulitis of large intestine without perforation or abscess without bleeding; I10 Essential (primary) hypertension; E78.00 Pure hypercholesterolemia, unspecified; I72.2 Aneurysm of renal artery; D72.819 Decreased white blood cell count, unspecified; K76.89 Other specified diseases of liver; Z79.899 Other long term (current) drug therapy; Z86.0100 Personal history of colon polyps, unspecified; Z86.73 Personal history of transient ischemic attack (TIA), and cerebral infarction without residual deficits; F51.04 Psychophysiologic insomnia; G47.33 Obstructive sleep apnea (adult) (pediatric); E66.01 Morbid (severe) obesity due to excess calories; Z68.35 Body mass index [BMI] 35.0-35.9, adult; F32.A Depression, unspecified; F41.9 Anxiety disorder, unspecified; F43.10 Post-traumatic stress disorder, unspecified; G43.909 Migraine, unspecified, not intractable, without status migrainosus; J84.10 Pulmonary fibrosis, unspecified; Z11.52 Encounter for screening for COVID-19
CPT/HCPCS: 71046; 74177; 80048; 80053; 81003; 81015; 82248; 83605; 85025; 85027; 86140; 87040; 87086; 87502; 87811; 93005; 96361; 96365; 99285; Q9967

== ENCOUNTER 2025-02-07 06:22 | Day surgery (SDC) | payer BC, SELFPAY | END 2025-02-07 14:21 | disposition home or self-care (01) | LOC: GI 06:22 | PROVIDERS: ATTENDING PHYSICIAN Surgery | DX: Z12.11 Encounter for screening for malignant neoplasm of colon (principal); K57.30 Diverticulosis of large intestine without perforation or abscess without bleeding; D12.0 Benign neoplasm of cecum; D12.4 Benign neoplasm of descending colon; Z86.0101 Personal history of adenomatous and serrated colon polyps | CPT/HCPCS: 45385; 45381; 45380; 88305 ==